=== PATIENT | female | born 1990 | race Caucasian/White ===

== ENCOUNTER 2017-11-03 17:26 | Emergency (ER) | payer MEDICAID, OTHER ==
[~2017-11-03] VITALS: Ht 152.4 cm; Wt 48.5 kg
[2017-11-03 18:13] VITALS: BP_SYST 107
--- NOTE | 2017-11-03 19:00 | NUR ---
27year old female presented to ED with complaints of weakness, SOB; reportedly "STARTED LEVAQUIN 10/28 FOR "BLOOD INFECTION" STATES REACTION TO MED" including hallucinations; awaiting for MD to assess/eval
--- NOTE | 2017-11-03 19:15 | NUR ---
MERRITT Lewis at chair for assess/eval
[2017-11-03 20:20] VITALS: BP_SYST 118
--- NOTE | 2017-11-03 20:20 | NUR ---
Patient given written and verbal discharge instructions and verbalizes understanding. ER MD discussed with patient the results and treatment provided. Patient in stable condition. ID arm band removed. Rx of Medrol given. Patient educated on pain management and to follow up with PMD within 2-3days. Pain Scale 0/10; pt and MD agreeable to discharge home. Opportunity for questions provided and answered.
== END 2017-11-03 20:20 | disposition home or self-care (01) ==
LOC: SED 17:26
DX: F41.0 Panic disorder [episodic paroxysmal anxiety] (principal); G47.00 Insomnia, unspecified; R07.9 Chest pain, unspecified; T37.8X5A Adverse effect of other specified systemic anti-infectives and antiparasitics, initial encounter; Z88.1 Allergy status to other antibiotic agents; Z91.040 Latex allergy status; Y92.89 Other specified places as the place of occurrence of the external cause
CPT/HCPCS: 93005; 99283

== ENCOUNTER 2018-08-20 09:45 | Emergency (ER) | payer MEDICAID ==
[~2018-08-20] VITALS: Ht 152.4 cm; Wt 48.5 kg
[2018-08-20 09:59] VITALS: BP_SYST 108
[2018-08-20 11:26] VITALS: BP_SYST 110
== END 2018-08-20 11:26 | disposition home or self-care (01) ==
LOC: SED 09:45
DX: J32.0 Chronic maxillary sinusitis (principal); Z88.1 Allergy status to other antibiotic agents; Z91.040 Latex allergy status
CPT/HCPCS: 81025; 99283

== ENCOUNTER 2018-08-21 00:22 | Emergency (ER) | payer MEDICAID ==
[~2018-08-21] VITALS: Ht 152.4 cm; Wt 48.5 kg
[2018-08-21 00:54] VITALS: BP_SYST 121
[2018-08-21] MEDS ORDERED: KETOROLAC TROMETHAMINE 60 MG/2 ML VIAL IM ONE (01:15)
[2018-08-21 02:16] VITALS: BP_SYST 120
== END 2018-08-21 02:16 | disposition home or self-care (01) ==
LOC: SED 00:22
DX: J32.9 Chronic sinusitis, unspecified (principal); Z88.1 Allergy status to other antibiotic agents; Z91.040 Latex allergy status
CPT/HCPCS: 70220; 96372; 99284; J1885

== ENCOUNTER 2019-06-25 22:51 | Emergency (ER) | payer BC, MEDICAID ==
[~2019-06-25] VITALS: Ht 152.4 cm; Wt 49.4 kg
[2019-06-25 22:55] VITALS: BP_SYST 110
[2019-06-26 00:20] VITALS: BP_SYST 123
== END 2019-06-26 00:20 | disposition home or self-care (01) ==
LOC: SED 22:51
DX: S80.862A Insect bite (nonvenomous), left lower leg, initial encounter (principal); S80.861A Insect bite (nonvenomous), right lower leg, initial encounter; Z88.1 Allergy status to other antibiotic agents; Z91.040 Latex allergy status; W57.XXXA Bitten or stung by nonvenomous insect and other nonvenomous arthropods, initial encounter; Y93.89 Activity, other specified; Y92.89 Other specified places as the place of occurrence of the external cause; Y99.8 Other external cause status
CPT/HCPCS: 99283

== ENCOUNTER 2021-11-11 18:46 | Emergency (ER) | payer MEDICAID, SELFPAY ==
[~2021-11-11] VITALS: Ht 152.4 cm; Wt 56.7 kg
[2021-11-11 19:24] VITALS: BP_SYST 101
--- NOTE | 2021-11-11 20:55 | NUR ---
Called pt 3x, no answer. Patient left without being seen. No further treatment provided. ER MD aware
== END 2021-11-11 20:55 | disposition left against medical advice (07) ==
LOC: SED 18:46
DX: O26.851 Spotting complicating pregnancy, first trimester (principal); Z3A.09 9 weeks gestation of pregnancy; Z53.21 Procedure and treatment not carried out due to patient leaving prior to being seen by health care provider

== ENCOUNTER 2022-11-24 05:07 | Emergency (ER) | payer MEDICAID ==
[~2022-11-24] VITALS: Ht 152.4 cm; Wt 56.2 kg
[2022-11-24 05:15] VITALS: BP_SYST 114
--- NOTE | 2022-11-24 05:16 | NUR ---
Patient triaged and placed in ED RM 08. VSS and patient appears in no acute distress at this time. MD Luther notified of need for MSE.
--- NOTE | 2022-11-24 05:19 | NUR ---
Patient arrived to ED 8 for c/o insomnia, heart palpitations. Patient said that the insomnia started two weeks ago. Patient is 5 months post and . Patient said she is not currently working. Patient denies wanting to hurt herself or hurt other people. Patient verbalized that she came to ER for assistance because she feels "restless for a while now."
[2022-11-24] MEDS ORDERED: LORazepam 1 MG TABLET PO ONE (05:30)
[2022-11-24 05:42] VITALS: BP_SYST 123
--- NOTE | 2022-11-24 05:44 | NUR ---
Patient given written and verbal discharge instructions and verbalizes understanding. ER MD discussed with patient the results and treatment provided. Patient in stable condition. ID arm band removed. Patient to follow PCP appointment. Opportunity for questions provided and answered. Medication side effect fact sheet provided.
== END 2022-11-24 05:44 | disposition home or self-care (01) ==
LOC: SED 05:07
DX: R00.2 Palpitations (principal); F41.9 Anxiety disorder, unspecified; Z88.1 Allergy status to other antibiotic agents; Z91.040 Latex allergy status; Z79.899 Other long term (current) drug therapy
CPT/HCPCS: 99283

== ENCOUNTER 2024-07-19 11:35 | Emergency (ER) | payer OTHER, MEDICAID ==
[~2024-07-19] VITALS: Ht 162.6 cm; Wt 63.5 kg
[2024-07-19 11:40] VITALS: BP_SYST 115; PULSE 84; RESP 18; TEMP 98.5; O2SAT 96
[2024-07-19] MEDS: ACETAMINOPHEN 500 MG TABLET PO ONE (13:26)
[2024-07-19] MEDS: KETOROLAC TROMETHAMINE 30 MG VIAL IM ONE (13:26)
[2024-07-19 16:36] VITALS: BP_SYST 115; PULSE 84; RESP 18; TEMP 98.5; O2SAT 96
== END 2024-07-19 16:37 | disposition home or self-care (01) ==
LOC: SED 11:35
DX: S13.4XXA Sprain of ligaments of cervical spine, initial encounter (principal); M79.641 Pain in right hand; R07.89 Other chest pain; R10.30 Lower abdominal pain, unspecified; Z88.1 Allergy status to other antibiotic agents; Z91.040 Latex allergy status; V89.2XXA Person injured in unspecified motor-vehicle accident, traffic, initial encounter; Y93.89 Activity, other specified; Y92.89 Other specified places as the place of occurrence of the external cause; Y99.8 Other external cause status
CPT/HCPCS: 99285; 71260; 73130; 74177; 81025; Q9967; J1885